=== PATIENT | male | born 1980 | race Two or more races ===

== ENCOUNTER 2023-01-24 07:08 | Outpatient (REF) | payer OTHER, SELFPAY ==
[2023-01-24 11:14] LABS: MANUAL DIFF FLAG NO
[2023-01-24 11:24] LABS: Basophils Percent Auto 0.8 % (0-2); Eosinophils Absolute Auto 0.2 X10*3/uL (0.0-0.4); Eosinophils Percent Auto 4.5 % (0-4); Hematocrit 41.2 % (42.0-52.0); Hemoglobin 14.1 g/dl (14.0-18.0); Imm Gran Abs Auto 0.01 X10*3/uL (0.00-0.03); Imm Gran Pct Auto 0.2 % (0.0-0.4); Lymphocytes Absolute Auto 1.9 X10*3/uL (1.2-4.9); Lymphocytes Percent Auto 37.7 % (20-40); Mean Corpuscular HGB Conc 34.2 g/dl (31.0-36.0); Mean Corpuscular Hemoglobin 29.6 pg (27.0-33.0); Mean Corpuscular Volume 86.4 fL (80.0-98.0); Mean Platelet Volume 11.3 fL (9.4-12.4); Monocytes Absolute Auto 0.3 X10*3/uL (0.1-1.2); Monocytes Percent Auto 6.6 % (2-11); Neutrophils Absolute Auto 2.6 x10*3/uL (2.0-8.3); Neutrophils Percent Auto 50.2 % (45-73); Platelet Count 162 X10*3/uL (160-400); Red Blood Count 4.77 X10*6/uL (4.60-5.80); White Blood Count 5.1 X10*3/uL (4.8-10.8)
[2023-01-24 11:57] LABS: Alanine Aminotransferase 17 U/L (0-40); Albumin Level 4.1 g/dL (3.5-5.0); Alkaline Phosphatase 85 U/L (39-117); Anion Gap 14 (12-20); Aspartate Amino Transferase 21 U/L (5-37); Bilirubin Total 0.7 mg/dL (0.0-1.0); Blood Urea Nitrogen 29 mg/dL (9-16); Calcium 9.3 mg/dL (8.4-10.2); Carbon Dioxide 26 mmol/L (22-29); Chloride 109 mmol/L (96-108); Cholesterol 197 mg/dL; Estimated Glomerular Filt Rate 29; Glucose Fasting 89 mg/dL (60-99); HDL Cholesterol 36 mg/dL; LDL Cholesterol Calculated 129 mg/dl; Potassium 4.5 mmol/L (3.3-5.1); Sodium 144 mmol/L (135-145); Total Protein 6.8 g/dL (6.5-8.0); Triglycerides 161 mg/dL
[2023-01-24 12:05] LABS: Prostate Specific Antigen Scr 1.03 ng/mL (<0.05-4.0); TSH reflex Free T4 3.13 uIU/mL (0.32-4.0)
[2023-01-24 12:06] LABS: Appearance Urine Clear; Color Urine Yellow; Glucose Urine UA Negative (Negative); Leukocyte Esterase Urine Trace (Negative); Nitrite Urine Negative (Negative); PH 5.5 (5.0-9.0); Specific Gravity - Urine 1.015 (1.005-1.025); UMIC TRIGGER UA YES; Urine Blood Negative (Negative); Urine Ketones Negative (Negative); Urine Protein Trace mg/dL (Neg-Trace)
[2023-01-24 12:11] LABS: Bacteria Urine None Seen (None Seen); Hyaline Casts Urine 0-2 /LPF (0-2); RBC Urine 0-2 /HPF (0-2); Squamous Epithelial Cell Urine 0-2 /HPF (0-2)
[2023-01-24 12:59] LABS: Creatinine Urine 123.86 mg/dL; Microalbum/Creatinine Ratio Ur 78.3 ug/mg cr
== END 2023-01-24 07:09 | disposition home or self-care (01) ==
LOC: HO.WFDLDS 07:08
PROVIDERS: Visit Provider Family Medicine
DX: Z00.00 Encounter for general adult medical examination without abnormal findings (principal); Z12.5 Encounter for screening for malignant neoplasm of prostate; I10 Essential (primary) hypertension
CPT/HCPCS: 36415; 80053; 80061; 81001; 81003; 82043; 84153; 84443; 85025

== ENCOUNTER 2023-01-30 15:23 | Outpatient (REF) | payer OTHER, SELFPAY ==
--- NOTE | ~2023-01-30 | US_ITS ---
EXAMINATION: US RETROPERITONEAL LIMITED (RENAL ONLY) CLINICAL INFORMATION: Polycystic kidney, unspecified. COMPARISON: None TECHNIQUE: Real-time imaging of the kidneys. FINDINGS: RIGHT KIDNEY: 23.1 x 10.3 x 10.7 cm (SAG x AP x TRV). The kidney is normal in size, contour, and echogenicity. Renal cortical thickness is normal. No renal calculi or hydronephrosis. Innumerable simple cysts are seen. LEFT KIDNEY: 22.3 x 8.4 x 10.2 cm (SAG x AP x TRV). The kidney is normal in size, contour, and echogenicity. Renal cortical thickness is normal. No renal calculi or hydronephrosis. Innumerable simple cysts are seen. US/US renal BI IMPRESSION: Innumerable simple bilateral cysts are seen, replacing normal renal parenchyma. These findings are consistent with the provided history of polycystic kidney disease. No mass, calculus or hydronephrosis is seen bilaterally.
== END 2023-01-30 15:24 | disposition home or self-care (01) ==
LOC: HO.US 15:23
PROVIDERS: PCP Family Medicine; Visit Provider Family Medicine
DX: Q61.3 Polycystic kidney, unspecified (principal); I10 Essential (primary) hypertension
CPT/HCPCS: 76775

== ENCOUNTER 2023-07-18 13:22 | Outpatient (AMB) | payer OTHER, SELFPAY ==
--- NOTE | 2023-07-18 13:28 | MHC.PC.OV ---
Vital Signs 07/18/23 13:29 Height 5 ft 10 in Weight 187 lb BMI 26.8 BP 118/72 Blood Pressure Location Lt brachial Position Sitting Pulse 60 Pulse Source Pulse Oximeter Pulse Oximetry (%) 99 Oxygen Delivery Method Room Air Intake Visit Reasons: f/u hypertension and polycystic kidney disease Intake Note: Patient is here to follow up on hypertension and polycystic kidney disease. Allergies No Known Allergies Allergy (Verified 07/18/23 13:32) Tobacco use date assessed: 07/18/23 Dental Screening Dental Screen Date: 07/18/23 Did you have a dental visit in the last 12 months?: Yes Did you have a dental problem in the last 6 months where you did not have access to dental care?: No Was dental information given to patient?: Patient has dentist HPI f/u hypertension and polycystic kidney disease HPI Details 43 y/o male presents to f/u hypertension and polycystic kidney disease. He is referred to nephrology for his polycystic kidney disease. Blood pressure today is 118/72. He is on amlodipine 5mg and lisinopril 10mg daily. 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 1. Little interest or pleasure in doing things: not at all 2. Feeling down, depressed, or hopeless: not at all 3. Trouble falling or staying asleep, or sleeping too much: not at all 4. Feeling tired or having little energy: not at all 5. Poor appetite or overeating: not at all 6. Feeling bad about yourself - or that you are a failure or have let yourself or your family down: not at all 7. Trouble concentrating on things, such as reading the newspaper or watching television: not at all 8. Moving or speaking so slowly that other people could have noticed. Or the opposite - being so fidgety or restless that you have been moving around a lot more than usual: not at all 9. Thoughts that you would be better off or of hurting yourself in some way: not at all Total score: 0 Source: Developed by Drs. Rodney Kingsley, Graciela Harrington, Anthony Cassidy and colleagues, with an educational jason from [employer]. Thrive Questionnaire I am a: Patient What is your living situation today?: I have a steady place to live Within the past 12 months, did the food you bought not last and you didn't have the money to get more?: Never true Within the past 12 months, did you worry whether your food would run out before you got money to buy more?: Never true Do you have trouble paying for medicines?: No Do you have trouble getting transportation to medical appointments?: No Do you have trouble paying your heating and electricity bill?: No Do you have trouble taking care of your child, family member or friend?: No Do you have trouble with day-to-day activities such as bathing, preparing meals, shopping, managing finances, etc.?: No Are you currently unemployed and looking for a job?: No Are you interested in more education?: Yes AUDIT C Alcohol Use Questionnaire (AUDIT-C) 1. How often do you have a drink containing alcohol?: 2-4 times a month 2. How many drinks containing alcohol do you have on a typical day when you are drinking?: 1 or 2 3. How often do you have six or more drinks on one occasion?: Never Total Score: 2 DENEEN-7 AMB Questionnaire DENEEN-7 Feeling nervous, anxious, or on edge: 0 = Not at all Not being able to stop or control worryin = Not at all Worrying too much about different things: 0 = Not at all Trouble relaxin = Not at all Being so restless that it is hard to sit still: 0 = Not at all Becoming easily annoyed or irritable: 0 = Not at all Feeling afraid as if something awful might happen: 0 = Not at all Total DENEEN-7 score (0-4 normal; 5-9 mild; 10-14 moderate; 15-21 severe): 0 Source: Developed by Graciela Pepe Kurt Kroenke and colleagues, with an educational jason from [employer]. Review of Systems Const Denies chills, Denies fatigue, Denies fever(s), Denies headache(s) and Denies weakness ENT Denies dizziness and Denies headache(s) Card Denies dyspnea Resp Denies cough, Denies dyspnea, Denies wheezing and Denies other (shortness of breath) Musc Denies numbness and Denies tingling Neuro Denies dizziness, Denies headache(s), Denies numbness, Denies tingling and Denies weakness Psych Denies anxiety and Denies depression Endo Denies fatigue Aller/Immun Denies wheezing Physical exam (Primary Care) Vital Signs: Last Vital Signs Pulse 60 07/18/23 13:29 BP 118/72 07/18/23 13:29 Pulse Ox 99 07/18/23 13:29 Oxygen Delivery Method Room Air 07/18/23 13:29 BMI result Body Mass Index 26.8 Tobacco/Smoking Status: Tobacco use Status Tobacco use date assessed 07/18/23 07/18/23 13:43 Patient Tobacco Use Status Never used Tobacco 07/18/23 13:43 e-Cigarette/Vaping Use Never Used 07/18/23 13:43 PHQ-9: PHQ-9 Score PHQ-9: Total score 0 07/18/23 14:04 Const General: well developed; No acute distress Nutritional Appearance: well nourished Orientation/consciousness: patient oriented x3 HENMT Head: Yes normocephalic and Yes atraumatic Eyes General: appearance normal, both eyes and all related structures Pupils: Equal, round and reactive pupils present EOM: EOMs intact bilaterally Resp Effort & Inspection: normal respiratory effort Auscultation: clear to auscultation bilaterally Cardio Rate: regular rate Rhythm: regular rhythm Heart sounds: S1 normal heart sound present, S2 normal heart sound present, no gallops, no murmurs and no rubs Neuro General: patient oriented x3 and gait normal Cranial nerves: Yes Equal, round and reactive pupils present Psych Affect: normal affect Assessment and Plan Assessment & Plan (1) Hypertension: Code(s): I10 - Essential (primary) hypertension Plan: Blood pressure is now well controlled on lisinopril 10 mg daily, started by his databases software consultant. His databases software consultant also discontinued amlodipine Creatinine level had bumped a little better starting this which is not unexpected. Goal is less than 140/90 Continue current lisinopril 10 mg daily (2) Polycystic kidney disease: Code(s): Q61.3 - Polycystic kidney, unspecified Plan: Followed by Dr. Zuñiga Follow-up with Dr. Zuñiga at next appointment (3) Renal failure: Code(s): N19 - Unspecified kidney failure Plan: As above, his creatinine level as bumped up a little since starting lisinopril Microalbumin/creatinine ratio has improved however Continue lisinopril Follow-up with nephrology as recommended (4) Mild anemia: Code(s): D64.9 - Anemia, unspecified Plan: Mild anemia likely secondary to chronic renal failure We can monitor this Orders: Orders Comprehensive Met. Panel Today N19 - Unspecified kidney failure Microalbumin, Random (w Creat) Today I10 - Essential (primary) hypertension, N19 - Unspecified kidney failure Complete Blood Count Auto Diff Today D64.9 - Anemia, unspecified, Z00.00 - Encounter for general adult medical examination without abnormal findings Medications: Discontinued amlodipine Discontinued Reason: Doctor's Order 5 mg PO DAILY 30 days 30 tabs 2RF Coding Level of Care Code Est Pt Level 4 (43520) Diagnoses Hypertension I10 Polycystic kidney disease Q61.3 Renal failure N19 Mild anemia D64.9
[2023-07-18 13:29] VITALS: BP 118/72; PULSE 60; O2SAT 99; BMI 26.8
== END 2023-07-18 14:20 | disposition home or self-care (01) ==
PROVIDERS: Visit Provider Family Medicine
DX: I10 Essential (primary) hypertension (principal); Q61.3 Polycystic kidney, unspecified; N19 Unspecified kidney failure; D64.9 Anemia, unspecified
CPT/HCPCS: 99214

== ENCOUNTER 2023-11-22 13:28 | Outpatient (AMB) | payer OTHER, SELFPAY ==
--- NOTE | 2023-11-22 13:36 | A.OFFPC_ITS ---
Vital Signs 11/22/23 13:38 Height 5 ft 10 in Weight 190 lb 2 oz BMI 27.3 BP 122/84 Blood Pressure Location Rt brachial Position Sitting Respiration 13 Pulse 67 Pulse Source Pulse Oximeter Pulse Oximetry (%) 97 Oxygen Delivery Method Room Air Intake Visit Reasons: f/u hypertension and labs Intake Note: Patient reports he had labs completed at [address] [place] [address] in [place], this is a [facility] reference lab, this [facility] will obtain these labs prior to provider entering the room. Service Engine Repairer Required: No Accompanied by: Self / Same As Patient Allergies No Known Allergies Allergy (Verified 11/22/23 13:45) Tobacco use date assessed: 07/18/23 Dental Screening Dental Screen Date: 11/22/23 Did you have a dental visit in the last 12 months?: Yes Did you have a dental problem in the last 6 months where you did not have access to dental care?: No Was dental information given to patient?: Patient has dentist HPI f/u hypertension and labs HPI Details 43 y/o male presents to f/u hypertension and labs. Hx of CRF secondary to polycystic kidney disease and followed by Dr. Zuñiga, nephrology. He has a f/u appt with them. Blood pressure today 122/84. He is on lisinopril 10mg daily. Had gotten his labs drawn at a [facility] reference lab 11/21/23. Low vitamin D. Pt reports L knee pain and does play soccer. 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 1. Little interest or pleasure in doing things: not at all 2. Feeling down, depressed, or hopeless: not at all 3. Trouble falling or staying asleep, or sleeping too much: not at all 4. Feeling tired or having little energy: not at all 5. Poor appetite or overeating: not at all 6. Feeling bad about yourself - or that you are a failure or have let yourself or your family down: not at all 7. Trouble concentrating on things, such as reading the newspaper or watching television: not at all 8. Moving or speaking so slowly that other people could have noticed. Or the opposite - being so fidgety or restless that you have been moving around a lot more than usual: not at all 9. Thoughts that you would be better off or of hurting yourself in some way: not at all Total score: 0 Depression Screening Interpretation: Negative Depression Screening Done: Yes 00604 - PHQ-9 Billing: Yes Source: Developed by Drs. Rodney Kingsley, Graciela Harrington, Anthony Cassidy and colleagues, with an educational jason from [employer]. Thrive Questionnaire Date Thrive assessed: 11/22/23 I am a: Patient What is your living situation today?: I have a steady place to live Within the past 12 months, did the food you bought not last and you didn't have the money to get more?: Never true Within the past 12 months, did you worry whether your food would run out before you got money to buy more?: Never true Do you have trouble paying for medicines?: No Do you have trouble getting transportation to medical appointments?: No Do you have trouble paying your heating and electricity bill?: No Do you have trouble taking care of your child, family member or friend?: No Do you have trouble with day-to-day activities such as bathing, preparing meals, shopping, managing finances, etc.?: No Are you currently unemployed and looking for a job?: No Are you interested in more education?: No Please select the resources that you would like help with: None Currently or been in a relationship where the following occur: no concerns reported Review of Systems Const Denies chills, Denies fatigue, Denies fever(s), Denies headache(s) and Denies weakness ENT Denies dizziness and Denies headache(s) Card Denies chest pain, Denies lightheadedness, Denies dyspnea and Denies other (Palpitations) Resp Denies cough, Denies dyspnea, Denies wheezing and Denies other ( shortness of breath) Musc Denies numbness and Denies tingling Neuro Denies dizziness, Denies headache(s), Denies numbness, Denies tingling, Denies paresthesias and Denies weakness Psych Denies anxiety and Denies depression Endo Denies fatigue Aller/Immun Denies wheezing Physical exam (Primary Care) Vital Signs: Last Vital Signs Pulse 67 11/22/23 13:38 Resp 13 11/22/23 13:38 BP 122/84 11/22/23 13:38 Pulse Ox 97 11/22/23 13:38 Oxygen Delivery Method Room Air 11/22/23 13:38 BMI result Body Mass Index 27.3 Tobacco/Smoking Status: Tobacco use Status Tobacco use date assessed 07/18/23 11/22/23 13:45 Patient Tobacco Use Status Never used Tobacco 11/22/23 13:45 e-Cigarette/Vaping Use Never Used 11/22/23 13:45 PHQ-9: PHQ-9 Score PHQ-9: Total score 0 11/22/23 13:50 Depression Screening Interpretation: Negative Thrive Assessment: Date of Thrive Assessment Date Thrive assessed 11/22/23 11/22/23 13:49 Currently or been in a relationship where the following occur: no concerns reported Const General: no acute distress and well developed Nutritional Appearance: well nourished Orientation/consciousness: patient oriented x3 [facility] Head: Yes normocephalic and Yes atraumatic Eyes General: appearance normal, both eyes and all related structures Pupils: Equal, round and reactive pupils present EOM: EOMs intact bilaterally Resp Effort & Inspection: normal respiratory effort Auscultation: clear to auscultation bilaterally Cardio Rate: regular rate Rhythm: regular rhythm Heart sounds: S1 normal heart sound present, S2 normal heart sound present, no gallops, no murmurs and no rubs Neuro General: patient oriented x3 and gait normal Cranial nerves: Yes Equal, round and reactive pupils present Psych Affect: normal affect Assessment and Plan Assessment & Plan (1) Hypertension: Code(s): I10 - Essential (primary) hypertension Plan: Blood?pressure?is?well?controlled.??Goal?is?less?than?140/90 Continue?current?medication (2) Renal failure: Code(s): N19 - Unspecified kidney failure Plan: Chronic?renal?failure?and?creatinine?has?increased?slightly?a gain.??He?is?on?lisinopril?and?followed?by?Dr. Zuñiga. No?changes?to?his?medication?regimen?today.??He?will?follow- up?with??and?discuss?renal?function?and?lisinopril?dose (3) Polycystic kidney disease: Code(s): Q61.3 - Polycystic kidney, unspecified Plan: Follow-up?with?Dr. Zuñiga as?recommended (4) Low vitamin D level: Code(s): R79.89 - Other specified abnormal findings of blood chemistry Plan: Vitamin-D?level?is?low Adding?vitamin?D3?2000?IU Will?recheck?with?next?blood?draw (5) Immunization counseling: Code(s): Z71.85 - Encounter for immunization safety counseling Plan: Due?for?flu?shot-given (6) Left knee pain: Code(s): M25.562 - Pain in left knee Plan: Pain?at?left?knee?over?anterolateral?aspect?of?proximal?tibia. Patient?was?concerned ?regarding?meniscal?injury?however?he?has?no?locking?and?Arthur?test?is?negativ e Likely?tendon/muscle?strain Offered?physical?therapy?but?patient?declines?for?now.??I?demonstrated?some?exer cises?and?advised?ice?and?NSAIDs?and?relative?rest?when?knee?hurts. Orders: Orders Influenza [id number] Immunization Today Z23 - Encounter for immunization Prostate Specific Antigen Scr Today Z12.5 - Encounter for screening for malignant neoplasm of prostate UA and rflx microscopic Today Z00.00 - Encounter for general adult medical examination without abnormal findings Vitamin D 25-OH Total Today E55.9 - Vitamin D deficiency, unspecified Comprehensive [place]. Panel Fast Today Z00.00 - Encounter for general adult medical examination without abnormal findings Complete Blood Count Auto Diff Today Z00.00 - Encounter for general adult medical examination without abnormal findings Lipid Panel Today Z00.00 - Encounter for general adult medical examination without abnormal findings Microalbumin, Random (w Creat) Today I10 - Essential (primary) hypertension TSH reflex Free T4 Today Z00.00 - Encounter for general adult medical examination without abnormal findings Medications: New flu vacc [id number] 6mos up(PF) 0.5 mL IM ONCE 0.5 mL 0RF Z23 - Encounter for immunization cholecalciferol (vitamin D3) 50 mcg PO DAILY 30 caps 2RF 30 days Coding Level of Care Code Est Pt Level 4 (30999) Diagnoses Hypertension I10 Renal failure N19 Polycystic kidney disease Q61.3 Low vitamin D level R79.89 Immunization counseling Z71.85 Left knee pain M25.562
[2023-11-22 13:38] VITALS: BP 122/84; PULSE 67; RESP 13; O2SAT 97; BMI 27.3
== END 2023-11-22 14:26 | disposition home or self-care (01) ==
PROVIDERS: PCP Family Medicine; Visit Provider Family Medicine
DX: I10 Essential (primary) hypertension (principal); N19 Unspecified kidney failure; Q61.3 Polycystic kidney, unspecified; R79.89 Other specified abnormal findings of blood chemistry; Z71.85 Encounter for immunization safety counseling; M25.562 Pain in left knee; Z23 Encounter for immunization
CPT/HCPCS: 90471; 90686; 99214

== ENCOUNTER 2024-03-20 14:01 | Outpatient (AMB) | payer OTHER, SELFPAY ==
[2024-03-20 14:07] VITALS: BP 110/70; PULSE 75; O2SAT 96; BMI 27.6
--- NOTE | 2024-03-20 14:07 | A.OFFPC_ITS ---
Vital Signs 03/20/24 14:07 Height 5 ft 10 in Weight 192 lb 8 oz BMI 27.6 BP 110/70 Blood Pressure Location Lt brachial Position Sitting Pulse 75 Pulse Oximetry (%) 96 Oxygen Delivery Method Room Air Intake Visit Reasons: CPE with f/u labs and health maint. Intake Note: Patient is here for his physical today. Allergies No Known Allergies Allergy (Verified 03/20/24 14:11) Tobacco use date assessed: 03/20/24 Dental Screening Dental Screen Date: 03/20/24 Did you have a dental visit in the last 12 months?: Yes Did you have a dental problem in the last 6 months where you did not have access to dental care?: No Was dental information given to patient?: Patient has dentist HPI CPE with f/u labs and health maint. HPI Details 43 y/o male presents for a CPE with f/u labs and health maintenance. No recent labs to review. Last labs drawn 01/24/23 - elevated creatinine of 2.44. HPI Comments History of Present Illness Details Documentation assistance for Leonardo Blackmon MD, was provided by Jos De Jesus, [employer] on 03/20/2024 2:52 PM EST. I, Dr. Blackmon, have read, observed, and verified documentation. 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 1. Little interest or pleasure in doing things: not at all 2. Feeling down, depressed, or hopeless: not at all 3. Trouble falling or staying asleep, or sleeping too much: not at all 4. Feeling tired or having little energy: not at all 5. Poor appetite or overeating: not at all 6. Feeling bad about yourself - or that you are a failure or have let yourself or your family down: not at all 7. Trouble concentrating on things, such as reading the newspaper or watching television: not at all 8. Moving or speaking so slowly that other people could have noticed. Or the opposite - being so fidgety or restless that you have been moving around a lot more than usual: not at all 9. Thoughts that you would be better off or of hurting yourself in some way: not at all Total score: 0 Depression Screening Interpretation: Negative Depression Screening Done: Yes Source: Developed by Drs. Rodney Kingsley, Graciela Harrington, Anthony Cassidy and colleagues, with an educational jason from [employer]. Thrive Questionnaire Date Thrive assessed: 03/20/24 I am a: Patient What is your living situation today?: I have a steady place to live Within the past 12 months, did the food you bought not last and you didn't have the money to get more?: Never true Within the past 12 months, did you worry whether your food would run out before you got money to buy more?: Never true Do you have trouble paying for medicines?: No Do you have trouble getting transportation to medical appointments?: No Do you have trouble paying your heating and electricity bill?: No Do you have trouble taking care of your child, family member or friend?: No Do you have trouble with day-to-day activities such as bathing, preparing meals, shopping, managing finances, etc.?: No Are you currently unemployed and looking for a job?: No Are you interested in more education?: No THRIVE Score: 0 AUDIT C Alcohol Use Questionnaire (AUDIT-C) 1. How often do you have a drink containing alcohol?: Monthly or less 2. How many drinks containing alcohol do you have on a typical day when you are drinking?: 1 or 2 3. How often do you have six or more drinks on one occasion?: Never Total Score: 1 DENEEN-7 AMB Questionnaire DENEEN-7 Date DENEEN - 7 assessed: 03/20/24 Feeling nervous, anxious, or on edge: 0 = Not at all Not being able to stop or control worryin = Not at all Worrying too much about different things: 0 = Not at all Trouble relaxin = Not at all Being so restless that it is hard to sit still: 0 = Not at all Becoming easily annoyed or irritable: 0 = Not at all Feeling afraid as if something awful might happen: 0 = Not at all Total DENEEN-7 score (0-4 normal; 5-9 mild; 10-14 moderate; 15-21 severe): 0 Source: Developed by Drs. Rodney Kingsley, Graciela Harrington, Anthony Cassidy and colleagues, with an educational jason from [employer]. Review of Systems Const Denies chills, Denies fatigue, Denies fever(s), Denies headache(s) and Denies weakness Eyes Denies change in vision ENT Denies dizziness, Denies headache(s), Denies hearing loss, Denies nasal congestion, Denies sinus pain, Denies sinus pressure and Denies sore throat Card Denies chest pain, Denies lightheadedness, Denies dyspnea and Denies other (palpitations) Resp Denies cough, Denies dyspnea and Denies wheezing GI Denies abdominal pain, Denies melena, Denies hematochezia, Denies change in bowel habits, Denies dyspepsia and Denies nausea Denies hematuria and Denies dysuria Musc Denies abnormal gait, Denies myalgias, Denies arthralgias, Denies numbness and Denies tingling Skin/Breast Denies rash, Denies unusual bruising and Denies wounds Neuro Denies abnormal gait, Denies dizziness, Denies headache(s), Denies memory loss, Denies numbness, Denies Sensory deficit (Neuro), Denies tingling and Denies weakness Psych Denies anxiety, Denies depression and Denies memory loss Endo Denies cold intolerance, Denies fatigue, Denies heat intolerance, Denies polydipsia and Denies polyuria Baljeet/Lymph Denies easy bleeding and Denies easy bruising Aller/Immun Denies wheezing Physical exam (Primary Care) Vital Signs: Last Vital Signs Pulse 75 03/20/24 14:07 BP 110/70 03/20/24 14:07 Pulse Ox 96 03/20/24 14:07 Oxygen Delivery Method Room Air 03/20/24 14:07 BMI result Body Mass Index 27.6 Tobacco/Smoking Status: Tobacco use Status Tobacco use date assessed 03/20/24 03/20/24 14:20 Patient Tobacco Use Status Never used Tobacco 03/20/24 14:08 e-Cigarette/Vaping Use Never Used 03/20/24 14:08 PHQ-9: PHQ-9 Score PHQ-9: Total score 0 03/20/24 14:20 Depression Screening Interpretation: Negative Thrive Assessment: Date of Thrive Assessment Date Thrive assessed 03/20/24 03/20/24 14:20 Const General: no acute distress, well developed, alert and awake Nutritional Appearance: well nourished Orientation/consciousness: patient oriented x3 HENMT Head: Yes normocephalic and Yes atraumatic Ears: hearing grossly normal bilaterally and TM's normal bilaterally General nose exam: Normal external nose present and Normal nares present Mouth: Normal oral and palatal mucosa present and moist mucous membranes Teeth and gingiva: dentition normal Throat: Yes posterior oropharynx normal Eyes General: appearance normal, both eyes and all related structures Pupils: Equal, round and reactive pupils present and Pupil accommodation reflex normal EOM: EOMs intact bilaterally Neck Neck: Yes normal visual inspection, Yes no lymphadenopathy and Yes trachea midline Thyroid: Thyroid normal Carotids: no bruits Lymphatic: no lymphadenopathy noted Chest Chest palpation & inspection: normal inspection of the chest Resp Effort & Inspection: normal respiratory effort Auscultation: clear to auscultation bilaterally Cardio Rate: regular rate Rhythm: regular rhythm Heart sounds: S1 normal heart sound present, S2 normal heart sound present, no gallops, no murmurs and no rubs Bruits: no abdominal aortic bruits and no carotid bruits GI Palpation (GI): No Abdominal aortic bruit present, Soft to palpation, nontender, No hepatosplenomegaly present and No Rebound tenderness present Auscultation: normal bowel sounds General: Yes no CVA tenderness Back/Spine/Pelvis Back: no CVA tenderness Cervical Spine: cervical ROM normal and No Cervical spine tenderness Thoracic/Lumbar Spine: thoraco-lumbar ROM normal, No pain with thoraco-lumbar ROM, No thoracic spinal tenderness and No lumbar spinal tenderness Skin Lesions: no lesions Rashes: no rashes Trauma: no lacerations or abrasions Wounds: no wounds Nails: normal Neuro General: patient oriented x3 Cranial nerves: Yes Equal, round and reactive pupils present Cognition (Neuro): normal cognition Gait exam (Neuro): Normal gait present Motor exam (neuro): 5/5 motor strength present throughout Sensory Exam: No Sensory deficit (Neuro) Deep tendon reflexes (DTR's): Right patellar reflex intensity grade: 2+ and Left patellar reflex intensity grade: 2+ Extrem General: Yes normal to inspection and No edema Psych Appearance: grossly normal Affect: normal affect Attitude: cooperative Thought process: Normal thought process present Assessment and Plan Assessment & Plan (1) Adult general medical examination: Code(s): Z00.00 - Encounter for general adult medical examination without abnormal findings Plan: 43-year-old?male?presents?for?complete?physical?exam Encouraged?healthy?diet?with?active?lifestyle?and?plenty?of?exercise.??Encourage d?good?hydration (2) Low vitamin D level: Code(s): R79.89 - Other specified abnormal findings of blood chemistry Plan: Mildly?low?vitamin-D?level?and?had?started?him?on?vitamin-D?but?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 (3) Hypertension: Code(s): I10 - Essential (primary) hypertension Plan: BP is well controlled. Goal?is?less?than?140/90 Continue?current?medication (4) Renal failure: Code(s): N19 - Unspecified kidney failure Plan: Secondary?to?polycystic?kidney?disease. Followed?by?Nephrology Stable Continue?blood?pressure?control Follow-up?with?nephrology (5) Screening for colon cancer: Code(s): Z12.11 - Encounter for screening for malignant neoplasm of colon Plan: Had?a?long?discussion?with?patient?regarding?colonoscopy?and?also?Cologuard. Patient?wants?to?think?about?it Will?readdress?at?a?subsequent?visit (6) Screening for prostate cancer: Code(s): Z12.5 - Encounter for screening for malignant neoplasm of prostate Plan: Due?for?PSA?level-ordered Coding Level of Care Code Est Pt Level 3 (86977) Est Pt Prev Care 40-64y(40277) Diagnoses Adult general medical examination Z00.00 Low vitamin D level R79.89 Hypertension I10 Renal failure N19 Screening for colon cancer Z12.11 Screening for prostate cancer Z12.5
== END 2024-03-20 15:47 | disposition home or self-care (01) ==
PROVIDERS: PCP Family Medicine; Visit Provider Family Medicine
DX: Z00.00 Encounter for general adult medical examination without abnormal findings (principal); R79.89 Other specified abnormal findings of blood chemistry; I10 Essential (primary) hypertension; N19 Unspecified kidney failure; Z12.11 Encounter for screening for malignant neoplasm of colon; Z12.5 Encounter for screening for malignant neoplasm of prostate
CPT/HCPCS: 99396

== ENCOUNTER 2024-04-14 09:26 | Outpatient (REF) | payer OTHER, SELFPAY ==
[2024-04-14 13:13] LABS: MANUAL DIFF FLAG NO
[2024-04-14 13:24] LABS: Basophils Percent Auto 0.8 % (0-2); Eosinophils Absolute Auto 0.1 X10*3/uL (0.0-0.4); Eosinophils Percent Auto 2.7 % (0-4); Hematocrit 40.8 % (42.0-52.0); Hemoglobin 13.5 g/dl (14.0-18.0); Imm Gran Abs Auto 0.01 X10*3/uL (0.00-0.03); Imm Gran Pct Auto 0.2 % (0.0-0.4); Lymphocytes Absolute Auto 1.7 X10*3/uL (1.2-4.9); Lymphocytes Percent Auto 35.9 % (20-40); Mean Corpuscular HGB Conc 33.1 g/dl (31.0-36.0); Mean Corpuscular Hemoglobin 28.7 pg (27.0-33.0); Mean Corpuscular Volume 86.8 fL (80.0-98.0); Monocytes Absolute Auto 0.3 X10*3/uL (0.1-1.2); Monocytes Percent Auto 5.7 % (2-11); Neutrophils Absolute Auto 2.6 x10*3/uL (2.0-8.3); Neutrophils Percent Auto 54.7 % (45-73); Platelet Count 142 X10*3/uL (160-400); Red Cell Distribution Width 12.4 % (11.0-16.0); White Blood Count 4.7 X10*3/uL (4.8-10.8)
[2024-04-14 13:35] LABS: Appearance Urine Clear; Color Urine Yellow; Glucose Urine UA Negative (Negative); Leukocyte Esterase Urine Negative (Negative); Nitrite Urine Negative (Negative); Urine Blood Negative (Negative); Urine Ketones Negative (Negative); Urine Protein Negative (Neg-Trace)
[2024-04-14 13:56] LABS: Alanine Aminotransferase 20 U/L (0-40); Albumin Level 4.4 g/dL (3.5-5.0); Alkaline Phosphatase 79 U/L (39-117); Anion Gap 16 (12-20); Aspartate Amino Transferase 20 U/L (5-37); Bilirubin Total 0.6 mg/dL (0.0-1.0); Blood Urea Nitrogen 41 mg/dL (9-16); Calcium 9.6 mg/dL (8.4-10.2); Carbon Dioxide 22 mmol/L (22-29); Chloride 110 mmol/L (96-108); Cholesterol 210 mg/dL (<200); Estimated Glomerular Filt Rate 21; Glucose Fasting 80 mg/dL (60-99); HDL Cholesterol 36 mg/dL (>40); LDL Cholesterol Calculated 147 mg/dL (<100); Potassium 5.2 mmol/L (3.3-5.1); Sodium 143 mmol/L (135-145); Total Protein 7.7 g/dL (6.5-8.0); Triglycerides 139 mg/dL (<150)
[2024-04-14 14:13] LABS: TSH reflex Free T4 1.21 uIU/mL (0.32-4.0); Vitamin D 25-OH Total 58.8 ng/mL (>30)
[2024-04-14 14:19] LABS: Prostate Specific Antigen Scr 1.21 ng/mL (<0.05-4.0)
[2024-04-14 14:20] LABS: Creatinine Urine 93.54 mg/dL; Microalbum/Creatinine Ratio Ur 27.7 ug/mg cr (<30)
== END 2024-04-14 09:27 | disposition home or self-care (01) ==
LOC: HO.HMGCLDS 09:26
PROVIDERS: PCP Family Medicine; Visit Provider Family Medicine
DX: Z00.00 Encounter for general adult medical examination without abnormal findings (principal); Z12.5 Encounter for screening for malignant neoplasm of prostate; I10 Essential (primary) hypertension; E55.9 Vitamin D deficiency, unspecified
CPT/HCPCS: 36415; 80053; 80061; 81003; 82043; 82306; 82570; 84153; 84443; 85025

== ENCOUNTER 2025-04-30 09:00 | Outpatient (AMB) | payer BC, SELFPAY ==
--- NOTE | 2025-04-30 09:04 | MHC.PC.OV ---
Vital Signs 04/30/25 09:07 Height 5 ft 10 in Weight 187 lb 6 oz BMI 26.9 BP 104/78 Blood Pressure Location Lt brachial Position Sitting Pulse 62 Pulse Source Pulse Oximeter Temp 97.9 F Temp Source Temporal Artery Scan Pulse Oximetry (%) 98 Oxygen Delivery Method Room Air Intake Visit Reasons: Physical Intake Note: Stan presents in the office today for his annual physical. Allergies No Known Allergies Allergy (Verified 04/30/25 09:06) Medication List - Last Reconciled 04/30/25 by Leonardo Blackmon MD lisinopril 10 mg PO DAILY Tobacco use date assessed: 04/30/25 Dental Screening Dental Screen Date: 04/30/25 Did you have a dental visit in the last 12 months?: Yes Did you have a dental problem in the last 6 months where you did not have access to dental care?: No Was dental information given to patient?: Patient has dentist HPI Physical HPI Details 45 y/o male presents for a CPE with f/u labs and health maintenance. No recent labs to review. Blood pressure today 104/78, 62p. He is on lisinopril 10mg daily. Hx of PKCD and CKD. Follows up with nephrology. 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 1. Little interest or pleasure in doing things: not at all 2. Feeling down, depressed, or hopeless: not at all 3. Trouble falling or staying asleep, or sleeping too much: not at all 4. Feeling tired or having little energy: not at all 5. Poor appetite or overeating: not at all 6. Feeling bad about yourself - or that you are a failure or have let yourself or your family down: not at all 7. Trouble concentrating on things, such as reading the newspaper or watching television: not at all 8. Moving or speaking so slowly that other people could have noticed. Or the opposite - being so fidgety or restless that you have been moving around a lot more than usual: not at all 9. Thoughts that you would be better off or of hurting yourself in some way: not at all Total score: 0 Depression Screening Interpretation: Negative Depression Screening Done: Yes 28410 - PHQ-9 Billing: Yes Source: Developed by Drs. Rodney Kingsley, Graciela Harrington, Anthony Cassidy and colleagues, with an educational jason from [employer]. Thrive Questionnaire Date Thrive assessed: 04/30/25 I am a: Patient What is your living situation today?: I have a steady place to live Within the past 12 months, did the food you bought not last and you didn't have the money to get more?: Never true Within the past 12 months, did you worry whether your food would run out before you got money to buy more?: Never true Do you have trouble paying for medicines?: No Do you have trouble getting transportation to medical appointments?: No Do you have trouble paying your heating and electricity bill?: No Do you have trouble taking care of your child, family member or friend?: No Do you have trouble with day-to-day activities such as bathing, preparing meals, shopping, managing finances, etc.?: No Are you currently unemployed and looking for a job?: No Are you interested in more education?: No Please select the resources that you would like help with: None Currently or been in a relationship where the following occur: No concerns reported THRIVE Score: 0 AUDIT C Alcohol Use Questionnaire (AUDIT-C) 1. How often do you have a drink containing alcohol?: 2-4 times a month 2. How many drinks containing alcohol do you have on a typical day when you are drinking?: 1 or 2 3. How often do you have six or more drinks on one occasion?: Never Total Score: 2 Score Reviewed/Action Taken: No DENEEN-7 AMB Questionnaire DENEEN-7 Date DENEEN - 7 assessed: 04/30/25 Feeling nervous, anxious, or on edge: 0 = Not at all Not being able to stop or control worryin = Not at all Worrying too much about different things: 0 = Not at all Trouble relaxin = Not at all Being so restless that it is hard to sit still: 0 = Not at all Becoming easily annoyed or irritable: 0 = Not at all Feeling afraid as if something awful might happen: 0 = Not at all Total DENEEN-7 score (0-4 normal; 5-9 mild; 10-14 moderate; 15-21 severe): 0 Source: Developed by Drs. Rodney Kingsley, Graciela Harrington, Anthony Cassidy and colleagues, with an educational jason from [employer]. DENEEN-7 Assessment Billing DENEEN-7 Assessment Tool: DENEEN-7 Assessment 05046 Review of Systems Const Denies chills, Denies fatigue, Denies fever(s), Denies headache(s) and Denies weakness Eyes Denies change in vision ENT Denies dizziness, Denies headache(s), Denies hearing loss, Denies nasal congestion, Denies sinus pain, Denies sinus pressure and Denies sore throat Card Denies chest pain, Denies lightheadedness, Denies dyspnea and Denies other (palpitations) Resp Denies cough, Denies dyspnea and Denies wheezing GI Denies abdominal pain, Denies melena, Denies hematochezia, Denies change in bowel habits, Denies dyspepsia and Denies nausea Denies hematuria and Denies dysuria Musc Denies abnormal gait, Denies myalgias, Denies arthralgias, Denies numbness and Denies tingling Skin/Breast Denies rash, Denies unusual bruising and Denies wounds Neuro Denies abnormal gait, Denies dizziness, Denies headache(s), Denies memory loss, Denies numbness, Denies Sensory deficit (Neuro), Denies tingling and Denies weakness Psych Denies anxiety, Denies depression and Denies memory loss Endo Denies cold intolerance, Denies fatigue, Denies heat intolerance, Denies polydipsia and Denies polyuria Baljeet/Lymph Denies easy bleeding and Denies easy bruising Aller/Immun Denies wheezing Physical exam (Primary Care) Vital Signs: Last Vital Signs Temp 97.9 F 04/30/25 09:07 Pulse 62 04/30/25 09:07 BP 104/78 04/30/25 09:07 Pulse Ox 98 04/30/25 09:07 Oxygen Delivery Method Room Air 04/30/25 09:07 BMI result Body Mass Index 26.9 Tobacco/Smoking Status: Tobacco use Status Tobacco use date assessed 04/30/25 04/30/25 09:11 Patient Tobacco Use Status Never used Tobacco 04/30/25 09:11 e-Cigarette/Vaping Use Never Used 04/30/25 09:11 PHQ-9: PHQ-9 Score PHQ-9: Total score 0 04/30/25 09:37 Depression Screening Interpretation: Negative Thrive Assessment: Date of Thrive Assessment Date Thrive assessed 04/30/25 04/30/25 09:11 Currently or been in a relationship where the following occur: No concerns reported Const General: no acute distress, well developed, alert and awake Nutritional Appearance: well nourished Orientation/consciousness: patient oriented x3 HENMT Head: Yes normocephalic and Yes atraumatic Ears: hearing grossly normal bilaterally and TM's normal bilaterally General nose exam: Normal external nose present and Normal nares present Mouth: Normal oral and palatal mucosa present and moist mucous membranes Teeth and gingiva: dentition normal Throat: Yes posterior oropharynx normal Eyes General: appearance normal, both eyes and all related structures Pupils: Equal, round and reactive pupils present and Pupil accommodation reflex normal EOM: EOMs intact bilaterally Neck Neck: Yes normal visual inspection, Yes no lymphadenopathy and Yes trachea midline Thyroid: Thyroid normal Carotids: no bruits Lymphatic: no lymphadenopathy noted Chest Chest palpation & inspection: normal inspection of the chest Resp Effort & Inspection: normal respiratory effort Auscultation: clear to auscultation bilaterally Cardio Rate: regular rate Rhythm: regular rhythm Heart sounds: S1 normal heart sound present, S2 normal heart sound present, no gallops, no murmurs and no rubs Bruits: no abdominal aortic bruits and no carotid bruits GI Palpation (GI): No Abdominal aortic bruit present, Soft to palpation, nontender, No hepatosplenomegaly present and No Rebound tenderness present Auscultation: normal bowel sounds General: Yes no CVA tenderness Back/Spine/Pelvis Back: no CVA tenderness Cervical Spine: cervical ROM normal and No Cervical spine tenderness Thoracic/Lumbar Spine: thoraco-lumbar ROM normal, No pain with thoraco-lumbar ROM, No thoracic spinal tenderness and No lumbar spinal tenderness Skin Lesions: no lesions Rashes: no rashes Trauma: no lacerations or abrasions Wounds: no wounds Nails: normal Neuro General: patient oriented x3 Cranial nerves: Yes Equal, round and reactive pupils present Cognition (Neuro): normal cognition Gait exam (Neuro): Normal gait present Motor exam (neuro): 5/5 motor strength present throughout Sensory Exam: No Sensory deficit (Neuro) Deep tendon reflexes (DTR's): Right patellar reflex intensity grade: 2+ and Left patellar reflex intensity grade: 2+ Extrem General: Yes normal to inspection and No edema Psych Appearance: grossly normal Affect: normal affect Attitude: cooperative Thought process: Normal thought process present Coding Level of Care Code Est Pt Level 3 (87990) Est Pt Prev Care 40-64y(66876) Diagnoses Adult general medical examination Z00.00 Hypertension I10 Hyperlipidemia E78.5 Allergies T78.40XA Polycystic kidney disease Q61.3 Screening for prostate cancer Z12.5 Screening for colon cancer Z12.11 Additional Codes DENEEN-7 Assessment Billing - DENEEN-7 Assessment Tool: DENEEN-7 Assessment 58815 ([id number]) PHQ-9 - 96096 - PHQ-9 Billing: Yes ([id number]) Assessment & Plan Assessment & Plan (1) Adult general medical examination: Code(s): Z00.00 - Encounter for general adult medical examination without abnormal findings Category: Medical Plan: 45-year-old?male?presents?for?complete?physical?exam Encouraged?healthy?diet?with?active?lifestyle?and?plenty?of?exercise (2) Hypertension: Code(s): I10 - Essential (primary) hypertension Category: Medical Plan: Blood?pressure?is?controlled.??Goal?is?less?than?140/90 Continue?lisinopril?as?prescribed (3) Hyperlipidemia: Code(s): E78.5 - Hyperlipidemia, unspecified Category: Medical Plan: Lipids?were?elevated?and?prior?measurement Will?repeat?this We?discussed?that?if?lipids?are?still?elevated?we?should?control?this?medication (4) Allergies: Code(s): T78.40XA - Allergy, unspecified, initial encounter Category: Medical Plan: Mild allergies He?can?use?an?OTC?antihistamine (5) Polycystic kidney disease: Code(s): Q61.3 - Polycystic kidney, unspecified Category: Medical Plan: Managed?by?Dr. Zuñiga Controlled?blood?pressure,?lipids?and?blood?sugar He?is?on?lisinopril.??Has?had?elevated?potassium?levels?in?the?past Advised?he?avoid?high?potassium?foods. Currently?does?not?need?a?low-potassium?diet?her?nephrology Follow-up?with?nephrology?as?recommended (6) Screening for prostate cancer: Code(s): Z12.5 - Encounter for screening for malignant neoplasm of prostate Category: Medical Plan: Due?for?PSA Ordered (7) Screening for colon cancer: Code(s): Z12.11 - Encounter for screening for malignant neoplasm of colon Category: Medical Plan: Discussed?colonoscopy?with?patient?again He?is?still?thinking?about?this Will?continue?to?address?with?patient Orders: Orders Lipid Panel 04/29/25 Z00.00 - Encounter for general adult medical examination without abnormal findings Microalbumin, Random (w Creat) 04/29/25 I10 - Essential (primary) hypertension Prostate Specific Antigen Scr 04/29/25 Z12.5 - Encounter for screening for malignant neoplasm of prostate Complete Blood Count Auto Diff Today D64.9 - Anemia, unspecified, Z00.00 - Encounter for general adult medical examination without abnormal findings Lipid Panel Today Z00.00 - Encounter for general adult medical examination without abnormal findings Prostate Specific Antigen Scr Today Z12.5 - Encounter for screening for malignant neoplasm of prostate UA CC w/rflx Micro + Cult Today Z00.00 - Encounter for general adult medical examination without abnormal findings Comprehensive [place]. Panel Fast 04/29/25 Z00.00 - Encounter for general adult medical examination without abnormal findings TSH reflex Free T4 04/29/25 Z00.00 - Encounter for general adult medical examination without abnormal findings UA CC w/rflx Micro + Cult 04/29/25 Z00.00 - Encounter for general adult medical examination without abnormal findings Complete Blood Count Auto Diff 05/29/25 Z00.00 - Encounter for general adult medical examination without abnormal findings Vitamin D 25-OH Total Today E55.9 - Vitamin D deficiency, unspecified, R79.89 - Other specified abnormal findings of blood chemistry Comprehensive [place]. Panel Fast Today N19 - Unspecified kidney failure, Z00.00 - Encounter for general adult medical examination without abnormal findings Microalbumin, Random (w Creat) Today I10 - Essential (primary) hypertension, N19 - Unspecified kidney failure TSH reflex Free T4 Today Z00.00 - Encounter for general adult medical examination without abnormal findings
[2025-04-30 09:07] VITALS: BP 104/78; PULSE 62; TEMP 36.6; O2SAT 98; BMI 26.9
--- OUTSIDE RECORDS SUMMARY | 2025-04-30 09:07 | XMS_ITS | Clinical Summary ---
Author Organization [facility] Address [address] [phone] Phone Care Team Providers Care Director Health Name Role Phone Leonardo Blackmon MD Primary Care Provider +- [phone] Allergies No known active allergies Medications amLODIPine (NORVASC) 5 MG tablet Take 5 mg by mouth 1 (one) time each day 04/09/2023 Active cholecalciferol (VITAMIN D-3) 50 MCG (2000 UT) capsule Take 2,000 Units by mouth 1 (one) time each day 12/21/2023 Active ergocalciferol (Drisdol) 1.25 MG (20030 UT) capsule Take 1 capsule (50,000 Units total) by mouth 1 (one) time per week 12 capsule 02/08/2025 6 Active lisinopril 10 MG tabletIndicatio ns:Chronic kidney disease, stage 4 (severe) (HCC) Take 1 tablet (10 mg total) by mouth 1 (one) time each day 90 tablet 2 02/09/2025 Active Active Problems Problem Noted Date Diagnosed Date Adult type polycystic kidney disease type 1 08/03 Encounters Date Type Department Care Team Description 02/08/2025 4:00 PM EDT Office Visit [facility] [address] [place] [phone] Abdi Zuñiga MD Chronic kidney disease, stage 4 (severe) (HCC) (Primary Dx); Autosomal dominant polycystic kidney disease; Hypertension 02/08/2025 Refill [facility] [address] [place] [phone] JarochoJanelle Chronic kidney disease, stage 4 (severe) (HCC) (Primary Dx) from Last 3 Months Family History Medical History Relation Comments Polycystic kidney disease Father Hypertension Mother Relation Status Comments Father Mother Social History Tobacco Use Types Packs/Day Years Used Date Smoking Tobacco: Never Passive Smoke Exposure: Never Smokeless Tobacco: Never Tobacco Cessation:Counseling Given: No Alcohol Use Standard Drinks/Week Comments Yes 0 (1 standard drink = 0.6 oz pur e alcohol) 1-2 weekly Sex and Gender Information Value Date Recorded Sex Assigned at Not on file Legal Sex Male 5:22 PM EST Gender Identity Not on file Sexual Orientation Not on file Last Filed Vital Signs Vital Sign Reading Time Taken Comments Blood Pressure 106/78 02/08/2025 4:08 PM EDT Pulse 60 02/08/2025 4:08 PM EDT Temperature - - Respiratory Rate - - Oxygen Saturation 98% 08/10/2024 4:30 PM EDT Inhaled Oxygen Concentration - - Weight 89.4 kg (197 lb) 02/08/2025 4:08 PM EDT Height - - Body Mass Index - - Plan of Treatment Upcoming Encounters Date Type Department Care Team (Late st Contact Info) Description 08/11/2025 4:15 PM EDT [facility] [address] [phone] Abdi Zuñiga MD [address] [phone] Health Maintenance Due Date Last Done Comments Hepatitis B Vaccine (1 of 3 - 19+ 3-dose series) 03/21 Pneumococcal Vaccine: Peds ( 0 to 5 Years) and At-Risk Patients (6 to 49 Years) (1 of 2 - PCV) 1997 Influenza Vaccine (Season Ended) 2025 Procedures Procedure Name Priority Date/Time Associated Diagnosis Comments US RENAL LIMITED Routine 03/15/2025 10:5 0 AM EDT Chronic kidney disease, stage 4 (severe) (HCC) PTH, INTACT Routine 02/04/2025 10:00 AM EST VITAMIN D 25 HYDROXY Routine 02/04/2025 10:00 AM EST CBC Routine 02/04/2025 10:00 AM EST RENAL FUNCTION PANEL Routine 02/04/2025 10:00 AM EST RP10+2AC (HC) Routine 02/04/2025 9:59 AM EST from Last 3 Months Results * Ultrasound renal limited (03/15/2025 10:50 AM EDT) Anatomical Region Laterality Modality Abdomen, Pelvis Ultrasound us Abdi Zuñiga MD CV VASCULAR PROCEDURES Final Res ult * (ABNORMAL) Vitamin D 25 Hydroxy (02/04/2025 10:00 AM EST) Vitamin D, 25-OH, Total 19.0(L) 30.0 - 100.0 ng/mL [facility] Comment: Vitamin D deficiency has been defined by the [place] of [employer] and an Endocrine Society practice guideline as a level of serum 25-OH vitamin D less than 20 ng/mL (1,2). The Endocrine Society went on to further define vitamin D insufficiency as a level between 21 and 29 ng/mL (2). 1. IOM ([place] of [employer]). 2010. Dietary reference ?? intakes for calcium and D. [place]: The ?? National Academies Press. 2. Juana MF, Nena NC, Nicole PAZ, et al. ?? Evaluation, treatment, and prevention of vitamin D ?? deficiency: an Endocrine Society clinical practice ?? guideline. JCEM. 2010; 96(7):1911-30. 02/04/2025 10:0 0 AM EST 02/04/2025 us Abdi Zuñiga MD LAB BLOOD ORDERABLES Final Resul t [facility] [address] [place] [phone] * CBC (02/04/2025 10:00 AM EST) WBC 5.2 3.4 - 10.8 x10E3/uL [facility] RBC 4.73 4.14 - 5.80 x10E6/uL [facility] Hemoglobin 13.6 13.0 - 17.7 g/dL [facility] Hematocrit 41.4 37.5 - 51.0 % [facility] MCV 88 79 - 97 fL [facility] MCH 28.8 26.6 - 33.0 pg [facility] MCHC 32.9 31.5 - 35.7 g/dL [facility] RDW 13.3 11.6 - 15.4 % [facility] Platelets 151 150 - 450 x10E3/uL [facility] 02/04/2025 10:0 0 AM EST 02/04/2025 us Abdi Zuñiga MD LAB BLOOD ORDERABLES Final Resul t [facility] [address] [place] [phone] * (ABNORMAL) PTH, Intact (02/04/2025 10:00 AM EST) PTH 68(H) 15 - 65 pg/mL [facility] 02/04/2025 10:0 0 AM EST 02/04/2025 us Abdi Zuñiga MD LAB BLOOD ORDERABLES Final Resul t [facility] [address] [place] [phone] * (ABNORMAL) Renal Function Panel (02/04/2025 10:00 AM EST) Glucose 94 70 - 99 mg/dL [facility] BUN 51(H) 6 - 24 mg/dL [facility] Creatinine 3.46(H) 0.76 - 1.27 mg/dL [facility] eGFR CKD-EPI CR 2020 21(L) >59 mL/min/1.7 3 [facility] BUN/Creatinine Ratio 15 9 - 20 [facility] Sodium 143 134 - 144 mmol/L [facility] Potassium 5.1 3.5 - 5.2 mmol/L [facility] Chloride 109(H) 96 - 106 mmol/L [facility] Bicarbonate (CO2) 20 20 - 29 mmol/L [facility] Calcium 9.6 8.7 - 10.2 mg/dL [facility] Albumin 4.6 4.1 - 5.1 g/dL [facility] Phosphorus 3.3 2.8 - 4.1 mg/dL [facility] 02/04/2025 10:0 0 AM EST 02/04/2025 us Abdi Zuñiga MD LAB BLOOD ORDERABLES Final Resul t [facility] [address] [place] [phone] * (ABNORMAL) RP10+2AC (02/04/2025 9:59 AM EST) Glucose 94 70 - 99 mg/dL [facility] BUN 49(H) 6 - 24 mg/dL [facility] Creatinine 3.43(H) 0.76 - 1.27 mg/dL [facility] eGFR CKD-EPI CR 2020 21(L) >59 mL/min/1.7 3 [facility] BUN/Creatinine Ratio 14 9 - 20 [facility] Sodium 142 134 - 144 mmol/L [facility] Potassium 5.0 3.5 - 5.2 mmol/L [facility] Chloride 108(H) 96 - 106 mmol/L [facility] Bicarbonate (CO2) 19(L) 20 - 29 mmol/L [facility] Anion Gap 15.0 10.0 - 18.0 mmol/L [facility] Calcium 9.5 8.7 - 10.2 mg/dL [facility] Total Protein 7.4 6.0 - 8.5 g/dL [facility] Albumin 4.7 4.1 - 5.1 g/dL [facility] Globulin 2.7 1.5 - 4.5 g/dL [facility] Uric Acid 7.9 3.8 - 8.4 mg/dL [facility] Comment:Therapeutic target f or gout patients: <6.0 Phosphorus 3.2 2.8 - 4.1 mg/dL [facility] 02/04/2025 9:59 AM EST 02/04/2025 us Abdi Zuñiga MD LAB [id number] ICITED RESULTS Final Result [facility] [address] [place] [phone] from Last 3 Months Insurance [facility] [address] Care Teams Director Health Relationship Specialty Start Date End Date Leonardo Blackmon MD [address] [phone] PCP - General Family Medicine 01/14/23
== END 2025-04-30 10:03 | disposition home or self-care (01) ==
LOC: HO.HMCFM 09:01
PROVIDERS: PCP Family Medicine; Visit Provider Family Medicine
DX: Z00.00 Encounter for general adult medical examination without abnormal findings (principal); I10 Essential (primary) hypertension; E78.5 Hyperlipidemia, unspecified; T78.40XA Allergy, unspecified, initial encounter; Q61.3 Polycystic kidney, unspecified; Z12.5 Encounter for screening for malignant neoplasm of prostate; Z12.11 Encounter for screening for malignant neoplasm of colon

== ENCOUNTER → 2025-04-30 09:00 | Outpatient (BNVA) | payer BC, SELFPAY | PROVIDERS: PCP Family Medicine; Visit Provider Family Medicine | DX: Z00.00 Encounter for general adult medical examination without abnormal findings (principal); I10 Essential (primary) hypertension; E78.5 Hyperlipidemia, unspecified; T78.40XA Allergy, unspecified, initial encounter; Q61.3 Polycystic kidney, unspecified; Z79.899 Other long term (current) drug therapy; Z13.30 Encounter for screening examination for mental health and behavioral disorders, unspecified; Z13.31 Encounter for screening for depression | CPT/HCPCS: 96127 ==

== ENCOUNTER 2025-05-12 07:47 | Outpatient (REF) | payer BC, SELFPAY ==
--- OUTSIDE RECORDS SUMMARY | 2025-05-12 07:50 | XMS_ITS | Clinical Summary ---
Author Organization [facility] Address [address] [phone] Phone Care Team Providers Care Piano Bench Assembler Name Role Phone Leonardo Blackmon MD Primary Care Provider [phone] Allergies No known active allergies Medications amLODIPine (NORVASC) 5 MG tablet Take 5 mg by mouth 1 (one) time each day 3 Active cholecalcifero l (VITAMIN D-3) 50 MCG (2000 UT) capsule Take 2,000 Units by mouth 1 (one) time each day 4 Active lisinopril 10 MG tabletIndicati ons:Chronic kidney disease, stage 4 (severe) ([facility]) Take 1 tablet (10 mg total) by mouth 1 (one) time each day 90 tablet 2 5 Active ergocalciferol 1.25 MG (70528 UT) capsule TAKE 1 CAPSULE (50,000 UNITS TOTAL) BY MOUTH ONCE WEEKLY 12 capsule 5 Active ergocalciferol (Drisdol) 1.25 MG (00063 UT) capsule Take 1 capsule (50,000 Units total) by mouth 1 (one) time per week 12 capsule 5 04/30/20 25 Discontinued Active Problems Problem Noted Date Diagnosed Date Adult type polycystic kidney disease type 1 08/03 Encounters Date Type Department Care Team Description 04/30/2025 Refill [facility] [address] [phone] Abdi Zuñiga MD from Last 3 Months Family History Medical [...] Office Visit [facility] [address] [phone] Abdi Zuñiga MD [address] [phone] Health Maintenance Due Date Last Done Comments [...] Chronic kidney disease, stage 4 (severe) (HCC) from Last 3 Months Results * Ultrasound renal limited (03/15/2025 10:50 AM EDT) Anatomical Region Laterality Modality Abdomen, Pelvis Ultrasound us Abdi Zuñiga MD CV VASCULAR PROCEDURES Final Res ult from Last 3 Months Insurance [facility] Care Teams Piano Bench Assembler Relationship Specialty Start Date End Date Leonardo Blackmon MD [address] [place] [id number] PCP - General Family Medicine 01/14/23
[2025-05-12 11:24] LABS: Appearance Urine Clear; Color Urine Yellow; Glucose Urine UA Negative (Negative); Leukocyte Esterase Urine Trace (Negative); Nitrite Urine Negative (Negative); PH 5.5 (5.0-9.0); UMIC TRIGGER UACC YES; Urine Blood Negative (Negative); Urine Ketones Negative (Negative); Urine Protein Negative (Neg-Trace)
[2025-05-12 11:26] LABS: MANUAL DIFF FLAG NO
[2025-05-12 11:30] LABS: Bacteria Urine None Seen (None Seen); Hyaline Casts Urine 0-2 /LPF (0-2); RBC Urine 0-2 /HPF (0-2); Squamous Epithelial Cell Urine 0-2 /HPF (0-2); WBC Urine 0-5 /HPF (0-5)
[2025-05-12 11:38] LABS: Basophils Percent Auto 0.4 % (0-2); Eosinophils Absolute Auto 0.2 X10*3/uL (0.0-0.4); Eosinophils Percent Auto 3.3 % (0-4); Hematocrit 35.9 % (42.0-52.0); Hemoglobin 12.1 g/dl (14.0-18.0); Imm Gran Abs Auto 0.01 X10*3/uL (0.00-0.03); Imm Gran Pct Auto 0.2 % (0.0-0.4); Lymphocytes Absolute Auto 1.4 X10*3/uL (1.2-4.9); Lymphocytes Percent Auto 30.4 % (20-40); Mean Corpuscular HGB Conc 33.7 g/dl (31.0-36.0); Mean Corpuscular Hemoglobin 29.2 pg (27.0-33.0); Mean Corpuscular Volume 86.5 fL (80.0-98.0); Mean Platelet Volume 10.9 fL (9.4-12.4); Monocytes Absolute Auto 0.3 X10*3/uL (0.1-1.2); Neutrophils Absolute Auto 2.7 x10*3/uL (2.0-8.3); Neutrophils Percent Auto 59.7 % (45-73); Platelet Count 126 X10*3/uL (160-400); Red Blood Count 4.15 X10*6/uL (4.60-5.80); Red Cell Distribution Width 12.8 % (11.0-16.0); White Blood Count 4.5 X10*3/uL (4.8-10.8)
[2025-05-12 12:06] LABS: Alanine Aminotransferase 29 U/L (0-40); Albumin Level 4.3 g/dL (3.5-5.0); Alkaline Phosphatase 84 U/L (39-117); Anion Gap 9 (12-20); Aspartate Amino Transferase 22 U/L (5-37); Bilirubin Total 0.3 mg/dL (0.0-1.0); Blood Urea Nitrogen 51 mg/dL (9-16); Carbon Dioxide 21 mmol/L (22-29); Chloride 114 mmol/L (96-108); Cholesterol 174 mg/dL (<200); Estimated Glomerular Filt Rate 18; Glucose Fasting 89 mg/dL (60-99); HDL Cholesterol 24 mg/dL (>40); LDL Cholesterol Calculated 95 mg/dL (<100); Prostate Specific Antigen Scr 1.29 ng/mL (<0.05-4.0); Sodium 139 mmol/L (135-145); Total Protein 6.7 g/dL (6.5-8.0); Triglycerides 278 mg/dL (<150)
[2025-05-12 12:11] LABS: Microalbum/Creatinine Ratio Ur 24.6 ug/mg cr (<30)
[2025-05-12 12:13] LABS: TSH reflex Free T4 1.83 uIU/mL (0.32-4.0)
== END 2025-05-12 07:48 | disposition home or self-care (01) ==
LOC: HO.WFDLDS 07:47
PROVIDERS: Visit Provider Family Medicine
DX: Z00.00 Encounter for general adult medical examination without abnormal findings (principal); I10 Essential (primary) hypertension; Z12.5 Encounter for screening for malignant neoplasm of prostate; D64.9 Anemia, unspecified; E55.9 Vitamin D deficiency, unspecified; R79.89 Other specified abnormal findings of blood chemistry
CPT/HCPCS: 36415; 80053; 80061; 81001; 82043; 82306; 82570; 84153; 84443; 85025

== ENCOUNTER 2025-05-14 10:07 | Outpatient (AMB) | payer BC, SELFPAY ==
--- NOTE | 2025-05-14 09:49 | A.OFFPC_ITS ---
Intake Visit Reasons: f/u CPE-labs via telemedicine Intake Note: patient is scheduled to review labs results Assistant Unit Forester Required: No Allergies No Known Allergies Allergy (Verified 05/14/25 09:50) Medication List - Last Reconciled 05/14/25 by Leonardo Blackmon MD lisinopril 10 mg PO DAILY Tobacco use date assessed: 04/30/25 Dental Screening Dental Screen Date: 04/30/25 HPI f/u CPE-labs via telemedicine HPI Details 45 y/o male presents to f/u CPE-labs via telemed. Labs drawn 05/12/25. Reviewed labs with pt. Ongoing anemia. Creatinine level worsened from 3.18 to 3.64. Triglycerides 278. TC 174. LDL imporved from 147 to 95. HDL low at 24. 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 Rodney Kingsley, Graciela Harrington, Anthony Cassidy and colleagues, with an educational jason from [employer]. Review of Systems Const Denies chills, Denies fatigue, Denies fever(s), Denies headache(s) and Denies weakness ENT Denies dizziness and Denies headache(s) Card Denies dyspnea Resp Denies cough, Denies dyspnea, Denies wheezing and Denies other (shortness of breath) Musc Denies numbness and Denies tingling Neuro Denies dizziness, Denies headache(s), Denies numbness, Denies tingling and Denies weakness Psych Denies anxiety and Denies depression Endo Denies fatigue Aller/Immun Denies wheezing Physical exam (Primary Care) Tobacco/Smoking Status: Tobacco use Status Tobacco use date assessed 04/30/25 05/14/25 09:52 Patient Tobacco Use Status Never used Tobacco 05/14/25 09:52 e-Cigarette/Vaping Use Never Used 05/14/25 09:52 Thrive Assessment: Date of Thrive Assessment Date Thrive assessed 04/30/25 05/14/25 09:52 Telehealth Telehealth Telehealth Platform: Telephone Location of provider rendering services: practice address Location of patient: address on file Patient Identification confirmed using: Name, : Yes Telehealth method: voice only Patient verbally consented to treatment: Yes Patient verbally consented to billing insurance company: Yes Patient informed of any privacy concerns related to visit: Yes Minutes spent on Phone/Video with Pt.: 6 Coding Level of Care Code Tele Est Pt Level 2 (31692) Diagnoses Renal failure N19 Polycystic kidney disease Q61.3 Hyperlipidemia E78.5 Mild anemia D64.9 Assessment & Plan Assessment & Plan (1) Renal failure: Code(s): N19 - Unspecified kidney failure Category: Medical Plan: Creatinine?level?is?mildly?increased?from?prior?measurement?a?year?ago Follow-up?with??as?recommended (2) Polycystic kidney disease: Code(s): Q61.3 - Polycystic kidney, unspecified Category: Medical Plan: As?above,?follow-up?with? (3) Hyperlipidemia: Code(s): E78.5 - Hyperlipidemia, unspecified Category: Medical Plan: LDL?cholesterol?is?better?controlled HDL?is?too?low?and?triglycerides?are?high Encouraged?healthy?diet?low?in?cholesterol?and?exercise?as?tolerated (4) Mild anemia: Code(s): D64.9 - Anemia, unspecified Category: Medical Plan: Mild?anemia?likely?related?to?end-stage?renal?disease Will?continue?to?monitor Follow-up?with?nephrology?as?recommended Orders: Orders Basic Metabolic Panel Today D64.9 - Anemia, unspecified, Z00.00 - Encounter for general adult medical examination without abnormal findings Vitamin D 25-OH Total Today E55.9 - Vitamin D deficiency, unspecified, E78.6 - Lipoprotein deficiency Complete Blood Count Auto Diff Today D64.9 - Anemia, unspecified, Z00.00 - Encounter for general adult medical examination without abnormal findings Lipid Panel Today E78.6 - Lipoprotein deficiency, Z00.00 - Encounter for general adult medical examination without abnormal findings
--- OUTSIDE RECORDS SUMMARY | 2025-05-14 10:56 | XMS_ITS | Clinical Summary ---
Author Organization [facility][1] Address [address] [phone] Phone Care Team Providers Care Perfect Binder Operator Name Role Phone Leonardo Blackmon MD Primary Care Provider [phone] Allergies No known active allergies Medications amLODIPine (NORVASC) 5 MG tablet Take 5 mg by mouth 1 (one) time each day 3 Active cholecalcifero l (VITAMIN D-3) 50 MCG (2000 UT) capsule Take 2,000 Units by mouth 1 (one) time each day 4 Active lisinopril 10 MG tabletIndicati ons:Chronic kidney disease, stage 4 (severe) ([facility]) Take 1 tablet (10 mg total) by mouth 1 (one) time each day 90 tablet 2 5 Active ergocalciferol 1.25 MG (23528 UT) capsule TAKE 1 CAPSULE (50,000 UNITS TOTAL) BY MOUTH ONCE WEEKLY 12 capsule 5 Active ergocalciferol (Drisdol) 1.25 MG (41250 UT) capsule Take 1 capsule (50,000 Units total) by mouth 1 (one) time per week 12 capsule 5 04/30/20 25 Discontinued Active Problems Problem Noted Date Diagnosed Date Adult type polycystic kidney disease type 1 08/03 Encounters Date Type Department Care Team Description 04/30/2025 Refill [facility] [address] [phone] Abdi Zuñiga MD from Last [...] Office Visit [facility] [address] [phone] Abdi Zuñiga MD [address] [phone] Health Maintenance Due Date Last [...] Res ult from Last 3 Months Insurance [facility] Care Teams Perfect Binder Operator Relationship Specialty Start Date End Date Leonardo Blackmon MD [address] [place] [id number] PCP - General Family Medicine 01/14/23
== END 2025-05-14 17:08 | disposition home or self-care (01) ==
LOC: HO.HMCFM 10:07
PROVIDERS: PCP Family Medicine; Visit Provider Family Medicine
DX: N19 Unspecified kidney failure (principal); Q61.3 Polycystic kidney, unspecified; E78.5 Hyperlipidemia, unspecified; D64.9 Anemia, unspecified

== ENCOUNTER → 2025-05-14 10:07 | Outpatient (BNVA) | payer BC, SELFPAY | PROVIDERS: PCP Family Medicine; Visit Provider Family Medicine | DX: Z13.89 Encounter for screening for other disorder (principal) ==